=== PATIENT | male | born 1950 | race Caucasian/White ===

== ENCOUNTER → 2016-09-02 | Outpatient (CLI) | payer MEDICARE, OTHER ==
[2015-04-14 13:20] VITALS: BP 109/67
[~2016-09-02] MED LIST: ALPH300C PO; ASPI-482 PO; ASPI81TA2 PO; ATOR40TA PO; CALC200T36 PO; CIPR500T94 PO; HYDR-2666 PO; IOHEXOL 350 MG/ML 100ML VIAL. IV ONE; LISI10TA2 PO; LISI1TAB5 PO; LORA10TA68 PO; MAGN250T PO; MELO15TA6 PO; METO-269 PO; MULT-26 PO; NIAC1000 PO; NITR100C63 PO; OMEG10006 PO; OMEG1CAP16 PO; OMEP20CA5 PO; PARO20TA55 PO; PHEN-373 PO; SILO8CAP PO; UBID400C3 PO; ZOLP10TA PO
[2016-09-02 16:51] LABS: CREATININE 0.8 mg/dL (0.7-1.3); GFR 96.4
--- NOTE | 2016-09-05 12:40 | RAD ---
Indication: Peripheral vascular disease. Coronary artery disease. Possible iliac artery aneurysms. Scheduled for knee surgery. Technique: Axial images and coronal and sagittal maximum intensity projection reformatted images are provided. 3-D volume rendered imaging is provided. Exam is from above the diaphragm to mid thigh. 90 mL of intravenous Omnipaque 350 was administered without complication. No comparison is available. One or more of the following individualized dose reduction techniques were utilized for this examination: 1. Automated exposure control 2. Adjustment of the mA and/or kV according to patient size 3. Use of iterative reconstruction technique Findings: There is atheromatous disease in the abdominal aorta without aneurysm. Calcified and soft plaque at the celiac trunk origin results in 50% luminal narrowing. SMA is without stenosis. Renal arteries are without stenosis, minimal atheromatous disease bilaterally. STEPHANIE is patent. There is atheromatous disease within both common and external iliac arteries without aneurysm. Right external iliac artery 30% luminal reduction is noted. Right common femoral artery demonstrates atheromatous disease but no stenosis. There is atheromatous disease within the included right superficial femoral artery, stenoses up to 40% are short segment. Left common femoral artery is without significant stenosis, mild to moderate atheromatous plaquing noted. Atheromatous disease within the left superficial femoral artery is noted without a hemodynamically significant stenosis. Timing of the bolus was to evaluate the aorta and its branches, not other structures. There is atelectasis in the lung bases. There is middle lobe and lingular atelectasis or scarring. The heart is not enlarged. Mild coronary artery calcifications are noted. There is fatty infiltration of the liver. Kidneys are symmetrically perfused. Pancreas and adrenals are unremarkable. There is no small bowel obstruction. There are a few diverticula in the colon, no findings of diverticulitis. Bladder is unremarkable. There is no adnexal mass. Prostate appears mildly enlarged and may indent on the floor the bladder, please correlate with exam findings and PSA values. Calcified phleboliths are noted in the pelvis. There are degenerative changes in the spine. Impression: 1. No evidence of abdominal or iliac artery aneurysm. 2. Up to 50% short segment ostial narrowing of the celiac trunk. 3. Additional atheromatous disease throughout the abdominal aorta, iliac arteries, common femoral arteries, and superficial femoral arteries, without any high-grade stenosis.
== END | disposition home or self-care (01) ==
LOC: CT 16:03
PROVIDERS: ATTEND Specialist
DX: I25.10 Atherosclerotic heart disease of native coronary artery without angina pectoris (principal); I70.0 Atherosclerosis of aorta
CPT/HCPCS: 36415; 74174; 82565; Q9967

== ENCOUNTER 2017-01-17 05:43 | Inpatient (IN) | payer MEDICARE, OTHER ==
--- NOTE | 2017-01-16 16:37 | PDOC1 ---
History and Physical Date of Admission Date of Admission DATE: 01/17/17 Identification/Chief Complaint Chief Complaint right hip pain Problems: Source Source: Chart review History of Present Illness History of Present Illness Mr. Anthony is a 66 year old male patient who had right hip percutaneous screw fixation of femoral neck fracture on 11/18/16. He continues to have pain with stretching and difficulty walking. He has stopped physical therapy. He is having to increased his tramadol dosage, due to pain. Past Medical History Cardiovascular: AFIB, CAD, HTN, [place], Hyperlipidemia Pulmonary: Other GI: Other Musculoskeletal: low back pain, Osteoarthritis Renal/: Other Past Surgical History Past Surgical History: CABG (x5-2007), Other (right shoulder surgery 2007, multiple left knee surgeries for fracture) Family History Family History: Coronary Artery Disease, Diabetes, Hypertension Social History Smoke: No ALCOHOL: none Current Medications Current Medications Current Medications Ketorolac Tromethamine 30 mg/Ropivacaine 60 ml/Epinephrine HCl 0.5 mg/Sodium Chloride 99.5 ml @ 99.5 mls/hr 1X PERIOP ONCE INT ART ; Start 01/17/17 at 06: 00; Stop 01/17/17 at 06:59 Ondansetron HCl (Zofran) 4 mg PRN Q6HRS PRN IV NAUSEA/VOMITING; Start 01/17/17 at 07:00; Stop 01/18/17 at 06:59 Fentanyl Citrate (Fentanyl 2ml Vial) 25 mcg PRN Q5MIN PRN IV MILD PAIN; Start 01/17/17 at 07:00; Stop 01/18/17 at 06:59 Fentanyl Citrate (Fentanyl 2ml Vial) 50 mcg PRN Q5MIN PRN IV MODERATE PAIN; Start 01/17/17 at 07:00; Stop 01/18/17 at 06:59 Ringer's Solution 1,000 ml @ 30 mls/hr Q24H IV ; Start 01/17/17 at 07:00; Stop 01/17/17 at 18:59 Lidocaine HCl 2 ml PRN 1X PRN ID PRIOR TO IV START; Start 01/17/17 at 07:00; Stop 01/18/17 at 06:59 Prochlorperazine Edisylate (Compazine) 5 mg PACU PRN PRN IV NAUSEA, MRX1; Start 01/17/17 at 07:00; Stop 01/18/17 at 06:59 Active Scripts Active Reported Omeprazole 20 Mg Capsule.dr 20 Mg PO DAILY Neurontin (Gabapentin) 300 Mg Capsule 300 Mg PO BID [Hydrocortisone Otic] 1 Drop EACH EAR DAILY Glucosamine & Chondroitin Cap (Gluc 2KCL/Chondr/Reyes Hy/Hy Ac) 1 Each Capsule 1 Each PO DAILY Fish Oil 500 mg Softgel ([place]-3/Dha/Epa/Fish Oil) 1 Each Capsule 1 Each PO TID Coq10 (Ubidecarenone) 50 Mg Tab.chew 200 Mg PO Magnesium (Magnesium Oxide) 400 Mg Capsule 2 Cap PO DAILY Vitamin D (Cholecalciferol (Vitamin D3)) 1,000 Unit Capsule 400 Unit PO DAILY Calcium (Calcium Carbonate) 600 Mg Tablet 600 Mg PO TID Tramadol Hcl 50 Mg Tablet 1 Tab PO TID Alpha Lipoic Acid 50 Mg Capsule 50 Mg PO DAILY Aspirin 325 Mg Tablet 1 Tab PO BID Senokot (Sennosides) 8.6 Mg Tablet 2 Tab PO HS Paxil (Paroxetine Hcl) 20 Mg Tablet 20 Mg PO HS Multivitamins (Multivitamin) 1 Each Tab.chew 1 Each PO DAILY Lipitor (Atorvastatin Calcium) 40 Mg Tablet 40 Mg PO HS Lisinopril 10 Mg Tablet 1 Tab PO HS Niaspan (Niacin) 1,000 Mg Tab.er.24h 2,000 Mg PO HS Toprol Xl (Metoprolol Succinate) 50 Mg Tab.er.24h 25 Mg PO DAILY Claritin (Loratadine) 10 Mg Tablet 10 Mg PO DAILY Lisinopril-Hctz 20-12.5 Mg Tab (Lisinopril/Hydrochlorothiazide) 1 Each Tablet 1 Tab PO DAILY Allergies Allergies: Coded Allergies: morphine (Verified Allergy, Severe, Chest tightness, throat numbness, 01/13) after 4mg IV push for pain acetaminophen (Verified Adverse Reaction, Intermediate, 01/12/17) AFFECTS LIVER ENZYMES Physical Exam General: Alert, Oriented X3, Cooperative, No acute distress HEENT: Atraumatic, EOMI Lungs: Normal air movement Heart: RRR Abdomen: Soft Extremities: No clubbing, No cyanosis, No edema, Normal pulses, Other (Right hip incisions are clean, dry, and intact. No drainage or erythema. Sharon were removed and steri strips were applied. Thigh and calf are soft and nontender. Negative Damian's sign. Gentle circumduction of hip is not painful. Good dorsiflexion and plantarflexion. No evidence of infection, DVT, or neurovascular injury.) Skin: No rashes, No breakdown, No significant lesion Neuro: Normal speech, Sensation intact Psych/Mental Status: Mental status NL, Mood NL Images Images IMAGING REPORT Images: Right hip two views. Clinical information: Percutaneous screw fixation or femoral neck fracture 11/18/2016 Comparison: 12/01/16 Findings Bones: There are three screws with washers seen crossing the femoral neck fracture. There is now distinct backing out of the screws, which may have been present on the December 01 films, but was less distinct at that time, and felt to be nondisplaced. There is now translation and slight varus alignment of the fracture line, without any definitive fracture callus. Preliminary nonunion is suspected. No distinct AVN at this time. The fracture line is still visible, and is potentially still well enough opposed for healing but the interval displacement is concerning for nonunion. Joints: Minimal narrowing. Soft tissue : Normal. Impression: Status post percutaneous screw fixation of right femoral neck fracture, with loss of position, shortening, slight translation and varus alignment, all suspicious for nonunion. 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 The fracture does not appear to be healing radiographically and clinically. Dr. Temple recommended right total knee arthroplasty. Risks and benefits of surgery were discussed. All of the patient's questions were answered and he agrees to proceed. NETO CARL Jan 16, 2017 16:37
[~2017-01-17] VITALS: Ht 175.3 cm; Wt 98.4 kg
[2017-01-17] VITALS (10 sets, daily range): BP systolic 103–124; BP diastolic 51–63
[~2017-01-17 05:43] MED LIST changes: +ALPH50CA2 PO; +ASPI-630 PO; +ASPI325T8 PO; -ASPI81TA2 PO; +CALC-614 PO; -CALC200T36 PO; +CALC600T4 PO; +CHOL100013 PO; +GABA-586 PO; +GLUC1CAP48 PO; -HYDR-2666 PO; +HYDR-2758 PO; +HYDROCORTISONE EACH EAR; -IOHEXOL 350 MG/ML 100ML VIAL. IV ONE; +MAGN400C PO; +OMEG-131 PO; -OMEG1CAP16 PO; +OMEG1CAP27 PO; +OMEP20CA9 PO; -PARO20TA55 PO; +PARO20TA99 PO; -PHEN-373 PO; +PHEN-444 PO; +SENN8.6T99 PO; +TRAM50TA PO; +UBID50TA PO
[2017-01-17] MEDS ORDERED: CELECOXIB 200 MG CAPSULE. PO PRN (06:00)
[2017-01-17] MEDS ORDERED: TRANEXAMIC ACID 1,000 MG in IV NS 50ML -- 1ST BAG INJ ONE (06:00)
[2017-01-17] MEDS ORDERED: CELE200C PO (06:14)
[2017-01-17] MEDS ORDERED: LIDOCAINE 2% PF Vial for OR 5 ML VIAL. ONE (06:35)
[2017-01-17] MEDS ORDERED: PROPOFOL 20 ML IV ONE (06:35)
[2017-01-17] MEDS ORDERED: DEXAMETHASONE SOD PHOS 20 MG/5 ML VIAL. ONE (06:35)
[2017-01-17] MEDS ORDERED: ONDANSETRON PF 4 MG/2 ML VIAL. ONE (06:35)
[2017-01-17] MEDS ORDERED: fentaNYL PF VIAL 100 MCG/2 ML VIAL ONE ×3 (06:35→09:28)
[2017-01-17] MEDS ORDERED: ROCURONIUM 50 MG/5 ML VIAL. ONE (06:35)
[2017-01-17] MEDS ORDERED: SEVOFLURANE > 120 MINUTES. IH ONE ×2 (06:35→09:39)
[2017-01-17 06:49] LABS: BASO % 1 % (0-3); EOS % 4 % (0-3); HEMATOCRIT 40.5 % (39.0-53.0); HEMOGLOBIN 13.7 g/dL (13.0-17.5); LYMPH # 2.1 x10^3/uL (1.0-4.8); LYMPH % 35 % (24-48); MEAN CORPUSCULAR HEMOGLOBIN 33 pg (25-35); MEAN CORPUSCULAR HGB CONC 34 g/dL (31-37); MEAN CORPUSCULAR VOLUME 96 fL (79-100); MONO % 9 % (0-9); NEUT % 52 % (31-73); PLATELET COUNT 169 x10^3/uL (140-400); RED BLOOD COUNT 4.21 x10^6/uL (4.30-5.70); RED CELL DISTRIBUTION WIDTH 13.2 % (11.5-14.5); WHITE BLOOD COUNT 6.1 x10^3/uL (4.0-11.0)
[2017-01-17 06:51] LABS: BILIRUBIN,URINE NEGATIVE (NEG); GLUCOSE,URINE NEGATIVE (NEG); NITRITE,URINE NEGATIVE (NEG); PH,URINE 5.5; PROTEIN,URINE NEGATIVE (NEG-TRACE); UROBILINOGEN,URINE 0.2 mg/dL (0.2 mg/dL)
[2017-01-17] MEDS ORDERED: FAMOTIDINE 20 MG/2 ML VIAL ONE (06:51)
[2017-01-17] MEDS ORDERED: MIDAZOLAM HCL/PF 2 MG/2 ML VIAL. ONE (06:52)
[2017-01-17 06:59] LABS: INR 1.2 (0.8-1.1); PROTHROMBIN TIME PATIENT 14.2 SEC (11.7-14.0)
[2017-01-17] MEDS ORDERED: EPINEPHRINE INT ART ONE (07:00)
[2017-01-17] MEDS ORDERED: ROPIVACAINE 0.75% INT ART ONE (07:00)
[2017-01-17] MEDS ORDERED: PROCHLORPERAZINE 10 MG/2 ML VIAL. IV PRN ×2 (07:00→10:15)
[2017-01-17] MEDS ORDERED: ONDANSETRON PF 4 MG/2 ML VIAL. IV PRN (07:00)
[2017-01-17] MEDS ORDERED: LIDOCAINE 1% 1 ML SYRINGE. ID PRN (07:00)
[2017-01-17] MEDS ORDERED: fentaNYL PF VIAL 100 MCG/2 ML VIAL IV PRN ×4 (07:00→10:15)
[2017-01-17] MEDS ORDERED: IV RINGERS,LACTATED 1000ML 1,000 ML IV SCH (07:00)
[2017-01-17] MEDS ORDERED: NORMAL SALINE INT ART ONE (07:00)
[2017-01-17] MEDS: SCOPOLAMINE 1.5MG PATCH. TD SCH ×2 (07:04→09:00)
[2017-01-17 07:06] LABS: BACTERIA,URINE FEW /HPF (0-FEW); RBC,URINE OCC /HPF (0-2); SQUAMOUS EPITHELIAL CELL,UR FEW /LPF
[2017-01-17] MEDS ORDERED: diphenhydrAMINE 50 MG/ML VIAL ONE (07:41)
[2017-01-17] MEDS ORDERED: ePHEDrine PF IN SALINE 50 MG/5 ML DISP.SYRIN IV ONE (07:43)
[2017-01-17] MEDS ORDERED: [UNRECOGNIZED DRUG - REMARK] INT ART ONE (08:00)
[2017-01-17] MEDS ORDERED: TRANEXAMIC ACID 1,000 MG in IV NS 50ML -- 2ND BAG INJ ONE (08:00)
[2017-01-17] MEDS ORDERED: hydrALAZINE 20 MG/ML VIAL. ONE (08:04)
[2017-01-17] MEDS ORDERED: ALBUMIN HUMAN 5% 500 ML IV ONE (08:31)
[2017-01-17] MEDS ORDERED: GLYCOPYRROLATE 1 MG/5 ML VIAL. ONE (09:17)
[2017-01-17] MEDS ORDERED: NEOSTIGMINE METHYLSULFATE 5 MG/5 ML SYRINGE. ONE (09:17)
[2017-01-17] MEDS: fentaNYL PF VIAL 100 MCG/2 ML VIAL IV PRN ×5 (09:57→16:33)
[2017-01-17] MEDS ORDERED: HYDROcodone/APAP 7.5/325MG 1 TAB TABLET PO PRN (10:15)
[2017-01-17] MEDS ORDERED: METOCLOPRAMIDE HCL 10 MG/2 ML VIAL. IV PRN (10:15)
[2017-01-17] MEDS ORDERED: DEXTROSE 50% 25 GM / 50ML DISP.SYRIN. IV PRN (10:15)
[2017-01-17] MEDS ORDERED: oxyCODONE/APAP 5/325 1 TAB TABLET PO PRN (10:15)
[2017-01-17] MEDS ORDERED: traMADol 50 MG TABLET PO PRN (10:15)
[2017-01-17] MEDS ORDERED: PROCHLORPERAZINE 5 MG TABLET. PO PRN (10:15)
[2017-01-17] MEDS ORDERED: CALCIUM CARBONATE 500 MG TAB.CHEW PO PRN (10:15)
[2017-01-17] MEDS ORDERED: HYDROcodone/APAP 10/325 1 TAB TABLET PO PRN (10:15)
[2017-01-17] MEDS ORDERED: diphenhydrAMINE 50 MG/ML VIAL IV PRN (10:15)
[2017-01-17] MEDS ORDERED: 0.9 % SODIUM CHLORIDE 10 ML DISP.SYRIN. IV PRN (10:15)
--- NOTE | 2017-01-17 10:22 | PDOC ---
BRIEF OPERATIVE NOTE Date: Jan 17, 2017 Pre-Op Diagnosis right femoral neck fracture s/p percutaneous pinning with non-union Post-Op Diagnosis same Procedure Performed right hip removal of hardware and total hip arthroplasty Surgeon MD Karla [employer] Machinery Assembler MD Windy Anesthesia Type: General Blood Loss 1300mL IV Fluid 2300mL crystalloid 500mL albumin 1 unit PRBC Findings as above Complications none NETO CARL Jan 17, 2017 10:22
--- NOTE | 2017-01-17 10:57 | RAD ---
Portable pelvis, single view, 01/17/2017: History: Postop evaluation Comparison is made to a study from 11/18/2016. A right hip prosthesis has been placed. It appears to be in satisfactory position. Surgical skin clips are present laterally, as is a surgical drain. There is no evidence of a retained surgical instrument, needle or radiopaque sponge on this single view.
[2017-01-17] MEDS: IV DEXTROSE 5 %-0.45 % NACL 1,000 ML IV SCH ×2 (11:00→21:18)
[2017-01-17] MEDS: traMADol 50 MG TABLET PO PRN ×2 (13:08→21:43)
[2017-01-17] MEDS: SENNOSIDES/DOCUSATE 8.6/50MG TABLET. PO SCH (13:09)
--- NOTE | 2017-01-17 13:17 | RAD ---
Portable right hip, 01/17/2017: History: Postop evaluation A shoot through lateral view of the right hip demonstrates a total hip prosthesis in place. It appears to be in satisfactory position. No fracture is identified. No retained surgical instrument, needle or radiopaque sponge is seen.
[2017-01-17] MEDS: FERROUS SULFATE 325 MG TABLET. PO SCH (17:34)
[2017-01-17] MEDS: SENNOSIDES 8.6 MG TABLET PO SCH (21:00)
[2017-01-17] MEDS: LISINOPRIL 10 MG TABLET PO SCH (21:00)
[2017-01-17] MEDS: PARoxetine 20 MG TABLET PO SCH (21:16)
[2017-01-17] MEDS: CELECOXIB 200 MG CAPSULE. PO SCH (21:17)
[2017-01-17] MEDS: ATORVASTATIN CALCIUM 40 MG TABLET. PO SCH (21:17)
[2017-01-17] MEDS: GABAPENTIN 300 MG CAPSULE. PO SCH (21:17)
[2017-01-17] MEDS: ASPIRIN ENTERIC COATED 325 MG TABLET.DR. PO SCH (21:17)
--- NOTE | 2017-01-18 01:36 | ACF ---
Admission Forms Criteria MUSCULOSKELETAL DISEASE GRG Clinical Indications for Admission to Inpatient Care (Place 'X' for any and all applicable criteria): Hospital admission is needed for appropriate care of the patient because of 1 or more of the following: [X]I. Fracture, dislocation, or other musculoskeletal injury requiring inpatient care(medical) as indicated by 1 or more of the following(4)(5)(6)(7) [ ]a) Vertebral fracture requiring observation for instability or neurologic compromise (8) [ ]b) Compartment syndrome (proven or cannot be ruled out during observation level of care) (9) [ ]c) Limb-threatening injury [ ]d) Major injury requiring inpatient stabilization such as traction initiation or external fixation before internal fixation or closure of complex or open fracture [X]e) Major injury requiring inpatient treatment after emergency or observation level care (as appropriate) [ ]f) Severe pain requiring acute inpatient management [ ]g) Injury with suspicion of abuse or neglect (eg., child, dependent elderly) [ ]II. Newly diagnosed or suspected bone, joint, or orthopedic device infection (e.g., osteomyelitis, septic arthritis) needing 1 or more of the following(1)(2)(3) [ ]a) IV antibiotics that cannot be initiated in other than inpatient setting (e.g., patient too unstable or home infusion not available) [ ]b) Device removal or replacement [ ]c) Bone or soft tissue debridement [ ]d) Joint drainage (drain placement or repetitive aspirations) [ ]III. Severe rheumatologic disease (e.g., systemic lupus erythematosus, rheumatoid arthritis) with complications or comorbidities (Also use Optimal Recovery Care Criteria or General Recovery Criteria as appropriate on the basis of predominant condition), including 1 or more of the following( 10)(11)(12)(13) [ ]a) Severe infection (e.g., [employer] ASSISTANT MANAGER infection, sepsis) (14) [ ]b) Respiratory complications, including 1 or more of the following : [ ]i) Pleural effusion with respiratory compromise [ ]ii) Pulmonary hypertension with congestive failure [ ]iii) Respiratory failure [ ]iv) Pulmonary hemorrhage (15) [ ]c) Hematologic disease, including 1 or more of the following: [ ]i) Coagulopathy with bleeding [ ]ii) Thrombosis with hypercoagulable state [ ]iii) Thrombotic thrombocytopenic purpura [ ]d) Cerebritis with seizures, psychosis, or other severe abnormalities [ ]e) Vertebral destruction with monitoring needed for cervical myelopathy& possible respiratory compromise [ ]f) Exacerbation that requires inpatient treatment (e.g., intravenous immunosuppression) (16) [ ]g) Acute renal failure [ ]h) Cerebritis with seizures, psychosis, Altered mental status, or other neurologic abnormalities [ ]i) Pericardial effusion with tamponade [ ]j) Vertebral destruction, with monitoring needed for cervical myelopathy and possible respiratory compromise [ ]IV. Severe vasculitis with complications or comorbidities (Also use Optimal Recovery Care Criteria General Recovery Criteria as appropriate on the basis of predominant condition), including 1 or more of the following(11)(12)(17)(18)(19)(20) [ ]a) Exacerbation that requires inpatient treatment (e.g., intravenous immunosuppression) (19)(21) [ ]b) Pulmonary hemorrhage (15) [ ]c) [employer] ASSISTANT MANAGER vasculitis with seizures, psychosis, Altered mental status that is severe or persistent, or other severe abnormalities (22) [ ]d) Cerebral infarction [ ]e) Gastrointestinal ischemia [ ]f) Gangrene or threatened amputation [ ]g) Renal failure (16) [ ]h) Other significant complications of vasculitis ( eg., tissue or organ ischemia, organ dysfunction ) [ ]V. Severe myopathy as indicated by 1 or more of the following (28)(29) [ ]a) New onset of airway compromise or inability to swallow [ ]b) Respiratory deterioration with observation needed for impending respiratory failure [ ]c) Exacerbation that requires inpatient treatment (e.g., intravenous immunosuppression) [ ]. Severe crystal gout (arthropathy) indicated by 1 or more of the following (23)(24) [ ]a) Severe pain requiring acute inpatient management [ ]b) Exacerbation that requires inpatient treatment (e.g., intravenous treatment) [ ]VII.Rhabdomyolysis and 1 or more of the following (25)(26)(27) [ ]a) Acute renal failure [ ]b) Need for intravenous hydration after emergency or observation level care (as appropriate) [ ]c) Inability to maintain oral hydration [ ]d) Change in mental status [ ]e) Electrolyte abnormality that remains after emergency or observation level care (as appropriate) [ ]VIII Post amputation complication, as indicated by ANY ONE of the following [ ]a) Infection [ ]b) Dehiscence [ ]c) Myodesis failure [ ]IX. Severe pain requiring acute inpatient management due to musculoskeletal condition [ ]X. Musculoskeletal Disease and ALL of the following: [ ]a) Symptom or finding for which emergency and observation care have failed or are not considered appropriate (Use General Criteria: Observation Care as appropriate) [ ]b) Presence of ANY ONE of the following [ ]i) A General Admission Criteria [ ]ii) A Pediatric General Admission Criteria The original [facility] content created by [facility] has been revised. The portions of the content which have been revised are identified through the use of italic text or in bold, and [facility] has neither reviewed nor approved the modified material. All other unmodified content is copyright [facility]. Please see references footnoted in the original [facility] edition 2016 Admission Criteria Met?: Yes FAUSTO ARMANDO Jan 18, 2017 01:36
[2017-01-18] MEDS: traMADol 50 MG TABLET PO PRN ×5 (02:37→20:38)
[2017-01-18 03:15] VITALS: BP 109/45
[2017-01-18] MEDS ORDERED: MAGNESIUM HYDROXIDE 2,400 MG/30 ML ORAL.SUSP. PO PRN (06:00)
[2017-01-18 06:23] VITALS: BP 115/67
[2017-01-18 07:14] LABS: HEMATOCRIT 31.7 % (39.0-53.0); HEMOGLOBIN 10.7 g/dL (13.0-17.5)
[2017-01-18] MEDS: IV DEXTROSE 5 %-0.45 % NACL 1,000 ML IV SCH (07:45)
[2017-01-18] MEDS: PANTOPRAZOLE 40 MG TABLET.DR. PO SCH (07:49)
[2017-01-18] MEDS: FERROUS SULFATE 325 MG TABLET. PO SCH ×2 (07:49→16:52)
[2017-01-18] MEDS: CETIRIZINE HCL 10 MG TABLET. PO SCH (07:50)
[2017-01-18] MEDS: MAGNESIUM OXIDE 400 MG TABLET PO SCH (07:50)
[2017-01-18] MEDS: ASPIRIN ENTERIC COATED 325 MG TABLET.DR. PO SCH ×2 (07:50→20:37)
[2017-01-18] MEDS: GABAPENTIN 300 MG CAPSULE. PO SCH ×2 (07:50→20:38)
[2017-01-18] MEDS: CELECOXIB 200 MG CAPSULE. PO SCH ×2 (07:50→20:38)
[2017-01-18] MEDS: CHOLECALCIFEROL (VITAMIN D3) 1,000 UNIT TABLET PO SCH (07:51)
[2017-01-18] MEDS: MULTIVITAMIN with MINERAL TABLET. PO SCH (07:51)
[2017-01-18] MEDS: LISINOPRIL 20 MG TABLET PO SCH (07:52)
[2017-01-18] MEDS: hydroCHLOROthiazide 12.5 MG CAPSULE PO SCH (07:52)
[2017-01-18] MEDS: METOPROLOL SUCC 24HR ER 25 MG TAB.ER.24H. PO SCH (07:53)
[2017-01-18] MEDS: SENNOSIDES/DOCUSATE 8.6/50MG TABLET. PO SCH (07:58)
--- NOTE | 2017-01-18 15:09 | PDOC ---
PROGRESS NOTES Subjective Subjective Doing well today. Pain is controlled with tramadol. Objective Vital Signs Vital Signs Date Time Temp Pulse Resp B/P (MAP) Pulse Ox O2 Delivery O2 Flow Rate FiO2 01/18/17 13:23 16 Room Air 01/18/17 07:53 79 115/67 01/18/17 06:23 98.2 96 98.2 01/17/17 14:06 2.0 Physical Exam Sitting up in recliner. Dressing dry and intact. Hemovac and IAC in place. Calf soft and nontender with negative Damian's sign. Good dorsiflexion and plantarflexion without evidence of neurovascular injury. Peripheral pulses and light touch sensation intact. Labs Laboratory Tests Test 01/17/17 06:30 01/18/17 06:50 White Blood Count 6.1 x10^3/uL (4.0-11.0) Red Blood Count 4.21 x10^6/uL (4.30-5.70) Hemoglobin 13.7 g/dL (13.0-17.5) 10.7 g/dL (13.0-17.5) Hematocrit 40.5 % (39.0-53.0) 31.7 % (39.0-53.0) Mean Corpuscular Volume 96 fL (79-100) Mean Corpuscular Hemoglobin 33 pg (25-35) Mean Corpuscular Hemoglobin Concent 34 g/dL (31-37) 34 g/dL (31-37) Red Cell Distribution Width 13.2 % (11.5-14.5) Platelet Count 169 x10^3/uL (140-400) Neutrophils (%) (Auto) 52 % (31-73) Lymphocytes (%) (Auto) 35 % (24-48) Monocytes (%) (Auto) 9 % (0-9) Eosinophils (%) (Auto) 4 % (0-3) Basophils (%) (Auto) 1 % (0-3) Neutrophils # (Auto) 3.2 x10^3uL (1.8-7.7) Lymphocytes # (Auto) 2.1 x10^3/uL (1.0-4.8) Monocytes # (Auto) 0.6 x10^3/uL (0.0-1.1) Eosinophils # (Auto) 0.2 x10^3/uL (0.0-0.7) Basophils # (Auto) 0.0 x10^3/uL (0.0-0.2) Erythrocyte Sedimentation Rate 4 (0-15) Prothrombin Time 14.2 SEC (11.7-14.0) Prothromb Time International Ratio 1.2 (0.8-1.1) Activated Partial Thromboplast Time 29 SEC (24-38) Urine Collection Type U cath Urine Color Yellow Urine Clarity Clear Urine pH 5.5 Urine Specific [place] 1.020 Urine Protein Negative mg/dL (NEG-TRACE) Urine Glucose (UA) Negative mg/dL (NEG) Urine Ketones (Stick) Negative mg/dL (NEG) Urine Blood Negative (NEG) Urine Nitrite Negative (NEG) Urine Bilirubin Negative (NEG) Urine Urobilinogen Dipstick 0.2 mg/dL (0.2 mg/dL) Urine Leukocyte Esterase Negative (NEG) Urine RBC Occ /HPF (0-2) Urine WBC 5-10 /HPF (0-4) Urine Squamous Epithelial Cells Few /LPF Urine Bacteria Few /HPF (0-FEW) Urine Mucus Marked /LPF Laboratory Tests Test 01/18/ 06:50 Hemoglobin 10.7 g/dL (13.0-17.5) Hematocrit 31.7 % (39.0-53.0) Mean Corpuscular Hemoglobin Concent 34 g/dL (31-37) Imaging Postoperative x-rays reviewed and show total hip arthroplasty in satisfactory position without any apparent complications. Assessment Assessment POD #1 right JERONIMO Problems: Plan Plan of Care Continue POC, including PT and DVT ppx. WBAT with walker. NETO ACRL Jan 18, 2017 15:09
[2017-01-18] MEDS ORDERED: BISACODYL 10 MG SUPP.RECT. PR PRN (16:00)
[2017-01-18 17:59] VITALS: BP 135/71
[2017-01-18] MEDS: SENNOSIDES 8.6 MG TABLET PO SCH (20:37)
[2017-01-18] MEDS: PARoxetine 20 MG TABLET PO SCH (20:37)
[2017-01-18] MEDS: ATORVASTATIN CALCIUM 40 MG TABLET. PO SCH (20:37)
[2017-01-18] MEDS: LISINOPRIL 10 MG TABLET PO SCH (20:38)
[2017-01-18] MEDS: ZOLPIDEM 5 MG TABLET. PO PRN (21:27)
[2017-01-19] MEDS: traMADol 50 MG TABLET PO PRN ×2 (01:21→05:34)
[2017-01-19] MEDS: PANTOPRAZOLE 40 MG TABLET.DR. PO SCH (05:34)
[2017-01-19 05:49] LABS: HEMOGLOBIN 10.1 g/dL (13.0-17.5)
[2017-01-19 06:05] VITALS: BP 114/62
[2017-01-19] MEDS: ASPIRIN ENTERIC COATED 325 MG TABLET.DR. PO SCH ×2 (08:20→21:15)
[2017-01-19] MEDS: CELECOXIB 200 MG CAPSULE. PO SCH ×2 (08:20→21:15)
[2017-01-19] MEDS: FERROUS SULFATE 325 MG TABLET. PO SCH ×2 (08:20→17:23)
[2017-01-19] MEDS: MAGNESIUM OXIDE 400 MG TABLET PO SCH (08:21)
[2017-01-19] MEDS: LISINOPRIL 20 MG TABLET PO SCH (08:21)
[2017-01-19] MEDS: hydroCHLOROthiazide 12.5 MG CAPSULE PO SCH (08:21)
[2017-01-19] MEDS: CHOLECALCIFEROL (VITAMIN D3) 1,000 UNIT TABLET PO SCH (08:22)
[2017-01-19] MEDS: MULTIVITAMIN with MINERAL TABLET. PO SCH (08:22)
[2017-01-19] MEDS: SENNOSIDES/DOCUSATE 8.6/50MG TABLET. PO SCH (08:22)
[2017-01-19] MEDS: CETIRIZINE HCL 10 MG TABLET. PO SCH (08:22)
[2017-01-19] MEDS: GABAPENTIN 300 MG CAPSULE. PO SCH ×2 (08:22→21:15)
[2017-01-19] MEDS: METOPROLOL SUCC 24HR ER 25 MG TAB.ER.24H. PO SCH (08:23)
[2017-01-19] MEDS: oxyCODONE/APAP 7.5/325 1 TAB TABLET PO PRN ×4 (08:23→21:17)
--- NOTE | 2017-01-19 16:21 | PATHOLOGY ---
PATHOLOGY REPORT * * * * * * * * FINAL DIAGNOSIS: Femoral head and additional segments of bone and bone reamings, right hip total arthroplasty: - Focal fragmentation of bony trabeculae with recent intertrabecular hemorrhage, consistent with fracture.. - Focal bony sclerosis. COMMENT: There is no evidence of malignancy. (JPM:mgr; 01/19/2017) REPORT ELECTRONICALLY SIGNED BY: Nacho Sheets M.D. DATE/TIME: 01/19/2017 16:20 * * * * * * * * GROSS PATHOLOGY: Received in formalin labeled "Nicola Guzman, right hip tissue," is a femoral head measuring 4.5 x 4.5 x 5.5 cm in greatest dimensions. The articular surface is light baugh and smooth in appearance. Sectioning reveals a light baugh marrow space, with the distal most aspect hemorrhagic in appearance, consistent with a fracture site. Also received within the specimen container are a moderate amount of reamings admixed with additional fragments of hemorrhagic bone measuring 8.5 x 7.2 x 0.9 cm in aggregate dimensions. Patient Information Coordinator tissue from the fracture site is submitted in cassette A1, following decalcification. (CAA; 01/18/2017) INITIAL CPT CODE(S): A; 80394, 19299 Professional services performed by [facility] at [address] [address] Technical services performed by [facility] at [address] [place] [address], [facility] [address] [address]. SPECIMEN(S) RECEIVED: A.Right hip tissue CLINICAL HISTORY: Right hip fracture PATIENT: NICOLA GUZMAN /AGE: 1003/30/1950 (Age: 66) PATIENT #: [id number] ALT CASE #: SPECIMEN COLLECTION DATE: 01/17/2017 SPECIMEN RECEIVED DATE: 01/17/2017 [facility] - [id number] [address] - PHONE: [phone] * * * END OF REPORT * * *
--- NOTE | 2017-01-19 17:51 | PDOC ---
PROGRESS NOTES Subjective Subjective Pain controlled. No major complaints. Objective Vital Signs Vital Signs Date Time Temp Pulse Resp B/P (MAP) Pulse Ox O2 Delivery O2 Flow Rate FiO2 01/19/17 17:23 18 Room Air 01/19/17 08:23 100 114/62 01/19/17 06:05 98.6 92 98.6 01/17/17 14:06 2.0 Physical Exam Postop dressing and pain catheter have been removed. bloody drainage only on Aquacel. Calf soft and nontender. Good AROM of ankle. Minimal erythema/warmth. Labs Laboratory Tests Test 01/18/17 06:50 01/19/17 05:30 Hemoglobin 10.7 g/dL (13.0-17.5) 10.1 g/dL (13.0-17.5) Hematocrit 31.7 % (39.0-53.0) 28.0 % (39.0-53.0) Mean Corpuscular Hemoglobin Concent 34 g/dL (31-37) 36 g/dL (31-37) Laboratory Tests Test 01/19/17 05:30 Hemoglobin 10.1 g/dL (13.0-17.5) Hematocrit 28.0 % (39.0-53.0) Mean Corpuscular Hemoglobin Concent 36 g/dL (31-37) Imaging Postoperative x-rays and report reviewed by me and show satisfactory alignment and no apparent complications of the hip Assessment Assessment POD #2 JERONIMO conversion from failed ORIF Problems: Plan Plan of Care Continue POC. Discharge planning for tomorrow. Aspirin 325 mg po BID and mobilization for DVT prophylaxis. MIGUEL CUNNINGHAM MD Jan 19, 2017 17:51
[2017-01-19 18:00] VITALS: BP 138/78
[2017-01-19] MEDS: PARoxetine 20 MG TABLET PO SCH (21:15)
[2017-01-19] MEDS: ATORVASTATIN CALCIUM 40 MG TABLET. PO SCH (21:15)
[2017-01-19] MEDS: LISINOPRIL 10 MG TABLET PO SCH (21:16)
[2017-01-19] MEDS: SENNOSIDES 8.6 MG TABLET PO SCH (21:17)
[2017-01-19] MEDS: ZOLPIDEM 5 MG TABLET. PO PRN (21:59)
[2017-01-20] MEDS: oxyCODONE/APAP 7.5/325 1 TAB TABLET PO PRN ×3 (02:51→12:25)
[2017-01-20 06:30] VITALS: BP 104/63
[2017-01-20 07:55] LABS: HEMATOCRIT 29.9 % (39.0-53.0); HEMOGLOBIN 10.2 g/dL (13.0-17.5)
[2017-01-20] MEDS: MAGNESIUM OXIDE 400 MG TABLET PO SCH (08:09)
[2017-01-20] MEDS: MULTIVITAMIN with MINERAL TABLET. PO SCH (08:09)
[2017-01-20] MEDS: SENNOSIDES/DOCUSATE 8.6/50MG TABLET. PO SCH (08:09)
[2017-01-20] MEDS: CELECOXIB 200 MG CAPSULE. PO SCH (08:09)
[2017-01-20] MEDS: CETIRIZINE HCL 10 MG TABLET. PO SCH (08:09)
[2017-01-20] MEDS: FERROUS SULFATE 325 MG TABLET. PO SCH (08:09)
[2017-01-20] MEDS: PANTOPRAZOLE 40 MG TABLET.DR. PO SCH (08:09)
[2017-01-20] MEDS: ASPIRIN ENTERIC COATED 325 MG TABLET.DR. PO SCH (08:09)
[2017-01-20] MEDS: GABAPENTIN 300 MG CAPSULE. PO SCH (08:10)
[2017-01-20] MEDS: CHOLECALCIFEROL (VITAMIN D3) 1,000 UNIT TABLET PO SCH (08:11)
[2017-01-20 08:17] VITALS: BP 104/63
[2017-01-20] MEDS: LISINOPRIL 20 MG TABLET PO SCH (08:17)
[2017-01-20] MEDS: METOPROLOL SUCC 24HR ER 25 MG TAB.ER.24H. PO SCH (08:17)
[2017-01-20] MEDS: hydroCHLOROthiazide 12.5 MG CAPSULE PO SCH (08:18)
[2017-01-20] MEDS: SCOPOLAMINE 1.5MG PATCH. TD SCH (08:18)
--- NOTE | 2017-01-20 11:27 | PDOC ---
PROGRESS NOTES Subjective Subjective Doing well, minimal pain. Objective Vital Signs Vital Signs Date Time Temp Pulse Resp B/P (MAP) Pulse Ox O2 Delivery O2 Flow Rate FiO2 01/20/17 08:17 88 104/63 01/20/17 06:30 98.9 20 92 Room Air 98.9 01/17/17 14:06 2.0 Physical Exam Dressing with slight bloody drainage only. Labs Laboratory Tests Test 01/19/17 05:30 01/20/17 07:26 Hemoglobin 10.1 g/dL (13.0-17.5) 10.2 g/dL (13.0-17.5) Hematocrit 28.0 % (39.0-53.0) 29.9 % (39.0-53.0) Mean Corpuscular Hemoglobin Concent 36 g/dL (31-37) 34 g/dL (31-37) Laboratory Tests Test 01/20/17 07:26 Hemoglobin 10.2 g/dL (13.0-17.5) Hematocrit 29.9 % (39.0-53.0) Mean Corpuscular Hemoglobin Concent 34 g/dL (31-37) Assessment Assessment POD 3 Problems: Plan Plan of Care Discharge planning for today. Continue DVT proph and PT. MIGUEL CUNNINGHAM MD Jan 20, 2017 11:27
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
--- NOTE | 2017-01-27 11:51 | PDOC3 ---
Discharge Summary Visit Information Date of Admission: Jan 17, 2017 Date of Discharge: Jan 20, 2017 Admitting Diagnosis: Nonunion of right femoral neck fracture Brief Hospital Course Allergies Allergies Coded Allergies Type Severity Reaction Last Updated Verified morphine Allergy Severe Chest tightness, throat numbness 01/17/17 Yes acetaminophen Adverse Reaction Intermediate 01/17/17 Yes Brief Hospital Course 66 year old male who presented with nonunion of right femoral neck fracture, for elective removal of screws and revision to right total hip arthroplasty. The patient underwent removal of screws and revision to right total hip arthroplasty under general anesthesia the day of admission. Perioperative antibiotics and DVT prophylaxis were used. Postoperatively physical therapy and case management were consulted. The patient progressed and is stable for discharge. Discharge Information Condition at Discharge: Stable Follow Up: Weeks (2) Disposition/Orders: D/C to Home Scheduled Alpha Lipoic Acid (Alpha Lipoic Acid), 50 MG PO DAILY, (Reported) Aspirin (Aspirin), 1 TAB PO BID, (Reported) Atorvastatin Calcium (Lipitor), 40 MG PO HS, (Reported) Calcium Carbonate (Calcium), 600 MG PO TID, (Reported) Celecoxib (Celebrex), 2 CAP PO ONCE, (Reported) Cholecalciferol (Vitamin D3) (Vitamin D), 400 UNIT PO DAILY, (Reported) Gabapentin (Neurontin), 300 MG PO BID, (Reported) Gluc 2KCL/Chondr/Reyes Hy/Hy Ac (Glucosamine & Chondroitin Cap), 1 EACH PO DAILY, (Reported) Lisinopril (Lisinopril), 1 TAB PO HS, (Reported) Lisinopril/Hydrochlorothiazide (Lisinopril-Hctz 20-12.5 Mg Tab), 1 TAB PO DAILY, (Reported) Loratadine (Claritin), 10 MG PO DAILY, (Reported) Magnesium Oxide (Magnesium), 2 CAP PO DAILY, (Reported) Metoprolol Succinate (Toprol Xl), 25 MG PO DAILY, (Reported) Multivitamin (Multivitamins), 1 EACH PO DAILY, (Reported) Niacin (Niaspan), 2,000 MG PO HS, (Reported) [place]-3/Dha/Epa/Fish Oil (Fish Oil 500 mg Softgel), 1 EACH PO TID, (Reported) Omeprazole (Omeprazole), 20 MG PO DAILY, (Reported) Paroxetine Hcl (Paxil), 20 MG PO HS, (Reported) Sennosides (Senokot), 2 TAB PO HS, (Reported) Tramadol Hcl (Tramadol Hcl), 1 TAB PO TID, (Reported) [Hydrocortisone Otic], 1 DROP EACH EAR DAILY, (Reported) Miscellaneous Medications Ubidecarenone (Coq10), 200 MG PO, (Reported) Patient Instructions Patient Instructions Patient Instructions Continue to WBAT with walker. Keep dressing dry and intact. F/U with [facility] in 10-14 days. Call for appointment. Physical therapy for JERONIMO Continue DVT prophylaxis. NETO CARL Jan 27, 2017 11:51
== END 2017-01-20 13:10 | DRG 941 ==
LOC: OPSVCIP 05:43 → 4 SOUTHEST 10:57
PROVIDERS: ADMIT Orthopaedic Surgery; ATTEND Orthopaedic Surgery
PROC: 30233N1 Transfusion of Nonautologous Red Blood Cells into Peripheral Vein, Percutaneous Approach (ICD-10-PCS; 2017-01-17)
PROC: 0QP604Z Removal of Internal Fixation Device from Right Upper Femur, Open Approach (ICD-10-PCS; principal; 2017-01-19)
PROC: 0SR90JZ Replacement of Right Hip Joint with Synthetic Substitute, Open Approach (ICD-10-PCS; 2017-01-19)
DX: T85.848A Pain due to other internal prosthetic devices, implants and grafts, initial encounter (principal); E78.5 Hyperlipidemia, unspecified; I10 Essential (primary) hypertension; Z96.649 Presence of unspecified artificial hip joint; Z96.651 Presence of right artificial knee joint; I25.10 Atherosclerotic heart disease of native coronary artery without angina pectoris; I48.91 Unspecified atrial fibrillation; Z82.49 Family history of ischemic heart disease and other diseases of the circulatory system; Z83.3 Family history of diabetes mellitus; Z95.1 Presence of aortocoronary bypass graft; Z79.899 Other long term (current) drug therapy; Z88.6 Allergy status to analgesic agent; Z88.1 Allergy status to other antibiotic agents
CPT/HCPCS: 36415; 72170; 73501; 81001; 85014; 85018; 85027; 85610; 85651; 85730; 86850; 86900; 86901; 86920; 87086; 88305; 88311; C1713; J0171; J0360; J0690; J0780; J1100; J1200; J1885; J2001; J2250; J2405; J2704; J2710; J2795; J3010; J3490; J7030; J7120; P9016; P9045; S0028; 97116; 97150; 97530; 97535

== ENCOUNTER → 2017-05-10 | Outpatient (CLI) | payer MEDICARE, OTHER ==
[~2017-05-10] MED LIST changes: +CELE200C PO; -MAGN250T PO; +MAGN250T2 PO
--- NOTE | 2017-05-10 09:35 | KCIC ---
MRI Lumbar Spine without contrast History: Sciatica, low back pain with right sciatica, pain with walking Technique: Multiplanar, multi sequential noncontrast MR imaging was performed of the lumbar spine. Contrast: None Comparison: None Findings: Lumbar vertebral body stature is preserved. Conus terminates at L1-2. There is more advanced degenerative disc disease at L5-S1 and to a somewhat lesser degree at L3-4 and L4-5, minimally at L2-3. There is hemangioma of the L2 vertebral body. Trace L3-4 endplate edema is likely reactive/degenerative in etiology. There is mild lumbar dextroscoliosis, possible thoracic levoscoliosis not fully included. There is negligible anterior spondylolisthesis L4-5. L1-L2: Spinal canal and neural foramina are adequate. L2-L3: There is moderate facet hypertrophic change and mild buckling of the ligamentum flavum. There is minimal disc osteophyte complex and bulge eccentric to the lateral recesses bilaterally. There is [id number] left and mild right lateral recess stenosis. Neural foramina are overall adequate. L3-L4: There is moderate to severe facet degenerative change and buckling of the ligamentum flavum. There is broad posterior disc osteophyte complex and bulge. Combination of findings results in severe spinal stenosis, some preserved subarachnoid space centrally in the right lateral recess. There is moderate to severe narrowing of the left neural foramen in part from disc osteophyte complex in combination with facet, right neural foramen overall adequate. L4-L5: There is moderate to severe facet degenerative change and buckling of the ligamentum flavum. There is disc osteophyte complex. There is moderate to severe narrowing of the far lateral recesses bilaterally, mild to moderate narrowing of the central canal. There is moderate to severe right and moderate left neural foramina compromise. L5-S1: There is minimal disc osteophyte complex. Spinal canal is overall adequate. There is fairly severe bilateral neural foramina compromise. There is moderate to severe right and moderate left facet degenerative change. Impression: 1. There is fairly severe spinal stenosis L3-4, some preserved subarachnoid space in the right lateral recess and centrally. There is lateral recess stenosis bilaterally at L4-5, to lesser degree on the left at L2-3. 2. There is more advanced degenerative disc disease at L5-S1 and to a somewhat lesser degree at L4-5 and L3-4. There is spondylosis at the same levels. 3. There is neural foramina compromise as stated greatest bilaterally at L5-S1, right greater than left at L4-5, and on the left at L3-4. 4. There is mild lumbar dextroscoliosis. There is negligible anterior spondylolisthesis L4-5. There is multilevel lumbar facet degenerative change. Electronically signed by: Sumeet Holder MD (05/10/2017 9:32 AM) [id number]
== END | disposition home or self-care (01) ==
LOC: KCIC MRI 08:35
PROVIDERS: ATTEND Orthopaedic Surgery
DX: M54.41 Lumbago with sciatica, right side (principal); M51.37 Other intervertebral disc degeneration, lumbosacral region; M48.061 Spinal stenosis, lumbar region without neurogenic claudication; M43.16 Spondylolisthesis, lumbar region; M47.896 Other spondylosis, lumbar region
CPT/HCPCS: 72148